=== PATIENT | female | born 1955 | race Caucasian/White ===

== ENCOUNTER → 2016-06-12 08:08 | Outpatient (CLI) | payer BC | END | disposition home or self-care (01) | LOC: D.CT 08:08 | DX: J01.90 Acute sinusitis, unspecified (principal) ==

== ENCOUNTER → 2017-03-11 12:56 | Outpatient (CLI) | payer BC | END | disposition home or self-care (01) | LOC: D.MAMMO 11:00 | DX: Z12.31 Encounter for screening mammogram for malignant neoplasm of breast (principal) ==

== ENCOUNTER 2018-11-29 08:00 | Outpatient (CLI) | payer BC | END 2018-11-29 23:59 | disposition home or self-care (01) | LOC: D.MAMMO 08:00 | PROVIDERS: ATTEND Family Medicine | DX: Z12.31 Encounter for screening mammogram for malignant neoplasm of breast (principal) ==

== ENCOUNTER 2018-12-22 11:30 | Outpatient (CLI) | payer BC | END 2018-12-22 12:00 | disposition home or self-care (01) | LOC: D.MAMMO 11:30 | PROVIDERS: ATTEND Family Medicine | DX: R92.8 Other abnormal and inconclusive findings on diagnostic imaging of breast (principal) ==